=== PATIENT | female | born 1935 | race Caucasian/White ===

== ENCOUNTER 2018-07-20 00:24 | Inpatient (IN) | payer MEDICARE, OTHER ==
[~2018-07-20] VITALS: Ht 157.5 cm; Wt 51.3 kg
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
[2018-07-20] MEDS ORDERED: MORPHINE SULFATE 4 MG/ML, 1ML IVPush PRN (00:30)
[2018-07-20] MEDS ORDERED: SODIUM CHLORIDE FLUSH 10ML SYR IVF ONE (00:30)
--- NOTE | 2018-07-20 00:30 | NUR ---
Dr. Chino at bedside to evaluate pt.
--- NOTE | 2018-07-20 00:46 | NUR ---
EDT at bedside for EKG. XR complete.
--- NOTE | 2018-07-20 00:56 | NUR ---
Pt to imaging, with tech, via gureuben.
[2018-07-20 00:57] LABS: MEAN CORPUSCULAR HEMOGLOBIN 40.7 pg (27.0-34.8); MEAN CORPUSCULAR VOLUME 116.3 fL (80-100); MEAN PLATELET VOLUME 6.6 fL (7.4-10.4); PLATELET COUNT 319 x10^3/uL (130-400); RED BLOOD COUNT 3.25 x10^6/uL (3.82-5.3); RED CELL DISTRIBUTION WIDTH 12.8 % (9.6-15.2)
[2018-07-20] MEDS ORDERED: PLEASE ENTER ALLERGIES MC SCH (01:00)
[2018-07-20 01:06] LABS: ALBUMIN 3.8 g/dL (3.4-5.0); ANION GAP 7 mmol/L (5-15); CHLORIDE 106 mmol/L (98-107)
--- NOTE | 2018-07-20 01:17 | NUR ---
Purewick placed, pt tolerated well.
--- NOTE | 2018-07-20 01:40 | NUR ---
Pt resting on gurney, awake, remains on monitors. Pt aware that we are waiting on results of XR. No urine yet.
[2018-07-20 02:01] LABS: BASOPHILS # (AUTO) 0.02 x10^3/uL (0-0.1); BASOPHILS % (AUTO) 0 % (0-1); EOSINOPHILS # (AUTO) 0.01 x10^3/uL (0-0.4); EOSINOPHILS % (AUTO) 0 % (1-7); LYMPHOCYTES # (AUTO) 0.49 x10^3/uL (1-3.4); LYMPHOCYTES % (AUTO) 8 % (22-44); MD SCAN; MONOCYTES # (AUTO) 0.43 x10^3/uL (0.2-0.8); MONOCYTES % (AUTO) 7 % (2-9); NEUTROPHILS % (AUTO) 85 % (42-75)
--- NOTE | 2018-07-20 02:23 | NUR ---
Pt initially refusing pain medication, now states that she is very uncomfortable and would like pain medication.
[2018-07-20] MEDS ORDERED: MORPHINE SULFATE 4 MG/ML, 1ML ONE (02:24)
--- NOTE | 2018-07-20 02:36 | NUR ---
Pt medicated per MAR.
[2018-07-20] MEDS ORDERED: MONT10TA6 PO (02:53)
[2018-07-20] MEDS ORDERED: HYDR500C PO (02:53)
[2018-07-20] MEDS ORDERED: ipratropium PO (02:53)
[2018-07-20] MEDS ORDERED: TRAZ-137 PO (02:53)
[2018-07-20] MEDS ORDERED: MECL-76 PO (02:53)
[2018-07-20] MEDS ORDERED: PARO20TA4 PO (02:53)
[2018-07-20] MEDS ORDERED: ASPI325T17 PO (02:53)
[2018-07-20] MEDS ORDERED: BISO1TAB12 PO (02:53)
--- NOTE | 2018-07-20 02:54 | NUR ---
Pt back to room from imaging.
--- NOTE | 2018-07-20 03:06 | NUR ---
RECEIVED REPORT FROM TREASURE HALEY TO ASSUME PT. CARE AT THIS TIME.
--- NOTE | 2018-07-20 03:17 | NUR ---
PT. RESTING ON GURNEY IN SUPINE POSITION. O2 SAT DOWN TO 88% ON RA; 2L O2 VIA NC PLACED WITH INCREASE TO 94%. PT. REPORTS SHE IS COMFORTABLE AT THIS TIME. CALL LIGHT IN REACH. CONTINUOUS PULSE OX AND B/P MONITORS IN PLACE. ALL SAFETY MEASURES OBSERVED.
--- NOTE | 2018-07-20 03:43 | NUR ---
DR. ARGUETA AT TO DISCUSS PLAN FOR ADMISSION WITH PT.
--- NOTE | 2018-07-20 03:58 | NUR ---
REPORT TO TREASURE EAGLE. FLOOR READY FOR PT. TRANSPORT.
[2018-07-20] MEDS ORDERED: POLYETHYLENE GLYCOL 17 GM PACKET PO PRN (04:30)
[2018-07-20] MEDS ORDERED: ONDANSETRON 2MG/ML, 2ML IVPush PRN (04:30)
[2018-07-20] MEDS: HEPARIN 5,000 UNITS/ML, 1ML SQ SCH ×2 (05:45→14:26)
[2018-07-20 06:50] LABS: MICROSCOPIC NOT IND
[2018-07-20 06:51] LABS: CULTURE INDICATED? NO
[2018-07-20 07:02] VITALS: BP 117/71
[2018-07-20 07:30] LABS: FOLATE LEVEL 11.6 ng/mL (3.1-17.5)
[2018-07-20] MEDS: ASPIRIN 325 MG TABLET PO SCH (08:22)
[2018-07-20] MEDS: MONTELUKAST 10 MG TABLET PO SCH (08:22)
[2018-07-20] MEDS: PAROXETINE 20 MG TABLET PO SCH (08:22)
[2018-07-20] MEDS: HCTZ HOMEMEDPO SCH (08:24)
[2018-07-20] MEDS: BISOPROLOL FUMARATE HOMEMEDPO SCH (08:24)
[2018-07-20] MEDS: [UNRECOGNIZED DRUG - OTHER] HOMEMEDPO SCH (08:24)
[2018-07-20] MEDS ORDERED: GABAPENTIN 100 MG CAPSULE PO PRN (08:30)
[2018-07-20] MEDS: HYDROXYUREA 500 MG CAPSULE PO SCH (08:35)
[2018-07-20 14:06] VITALS: BP 93/59
[2018-07-20] MEDS: OXYcodone IR 5MG TABLET PO PRN ×2 (14:26→20:59)
[2018-07-20 20:00] VITALS: BP 114/68
[2018-07-20] MEDS: TRAZODONE 100MG TABLET PO SCH (20:59)
[2018-07-21] MEDS: HEPARIN 5,000 UNITS/ML, 1ML SQ SCH ×2 (02:07→13:25)
[2018-07-21] MEDS: OXYcodone IR 5MG TABLET PO PRN ×3 (02:07→19:20)
[2018-07-21 02:09] VITALS: BP 118/69
[2018-07-21 06:16] LABS: MEAN CORPUSCULAR HEMOGLOBIN 40.7 pg (27.0-34.8); MEAN CORPUSCULAR HGB CONC 34.5 g/dL (32.4-35.8); MEAN CORPUSCULAR VOLUME 117.7 fL (80-100); MEAN PLATELET VOLUME 7.4 fL (7.4-10.4); PLATELET COUNT 266 x10^3/uL (130-400); RED BLOOD COUNT 3.23 x10^6/uL (3.82-5.3); RED CELL DISTRIBUTION WIDTH 12.3 % (9.6-15.2)
[2018-07-21 06:26] LABS: ANION GAP 5 mmol/L (5-15); CALCIUM 8.9 mg/dL (8.5-10.1); CHLORIDE 100 mmol/L (98-107); CREATININE 0.91 mg/dL (0.55-1.02)
[2018-07-21 06:41] LABS: MD YES
[2018-07-21 06:43] LABS: <PLATELET ESTIMATE> ADEQUATE; <PLT MORPHOLOGY> NORMAL PLT MORPH; HYPERSEG PMNs 1+; LYMPH#(MANUAL) 0.63 x10^3/uL (1-3.4); LYMPHS% (MANUAL) 11 % (22-44); MONOS#(MANUAL) 0.17 x10^3/uL (0.3-2.7); MONOS% (MANUAL) 3 % (2-9); SEGS% (MANUAL) 86 % (42-75)
[2018-07-21 07:09] VITALS: BP 109/65
[2018-07-21] MEDS: PAROXETINE 20 MG TABLET PO SCH (08:22)
[2018-07-21] MEDS: ASPIRIN 325 MG TABLET PO SCH (08:22)
[2018-07-21] MEDS: CYANOCOBALAMIN 1,000 MCG TABLET PO SCH (08:22)
[2018-07-21] MEDS: MONTELUKAST 10 MG TABLET PO SCH (08:22)
[2018-07-21] MEDS: HYDROXYUREA 500 MG CAPSULE PO SCH (08:27)
[2018-07-21] MEDS: HCTZ HOMEMEDPO SCH (08:29)
[2018-07-21] MEDS: BISOPROLOL FUMARATE HOMEMEDPO SCH (08:29)
[2018-07-21] MEDS: [UNRECOGNIZED DRUG - OTHER] HOMEMEDPO SCH (08:29)
[2018-07-21 13:12] VITALS: BP 109/69
[2018-07-21] MEDS: CHOLECALCIFEROL 5,000u TAB PO SCH (13:26)
[2018-07-21 19:17] VITALS: BP 102/64
[2018-07-21] MEDS: TRAZODONE 100MG TABLET PO SCH (19:20)
[2018-07-22] MEDS: OXYcodone IR 5MG TABLET PO PRN (01:11)
[2018-07-22] MEDS: HEPARIN 5,000 UNITS/ML, 1ML SQ SCH ×2 (01:11→14:05)
[2018-07-22 01:15] VITALS: BP 132/71
[2018-07-22 07:33] VITALS: BP 96/61
[2018-07-22] MEDS: HCTZ HOMEMEDPO SCH (09:00)
[2018-07-22] MEDS: [UNRECOGNIZED DRUG - OTHER] HOMEMEDPO SCH (09:00)
[2018-07-22] MEDS: BISOPROLOL FUMARATE HOMEMEDPO SCH (09:00)
[2018-07-22] MEDS: ASPIRIN 325 MG TABLET PO SCH (09:02)
[2018-07-22] MEDS: CYANOCOBALAMIN 1,000 MCG TABLET PO SCH (09:02)
[2018-07-22] MEDS: MONTELUKAST 10 MG TABLET PO SCH (09:02)
[2018-07-22] MEDS: PAROXETINE 20 MG TABLET PO SCH (09:02)
[2018-07-22] MEDS: CHOLECALCIFEROL 5,000u TAB PO SCH (09:02)
[2018-07-22] MEDS: HYDROXYUREA 500 MG CAPSULE PO SCH (09:03)
[2018-07-22 11:00] VITALS: BP 94/59
[2018-07-22 12:51] VITALS: BP 111/72
[2018-07-22] MEDS ORDERED: CHOL500015 PO (14:20)
[2018-07-22] MEDS ORDERED: GABA-826 PO (14:20)
== END 2018-07-22 16:45 | disposition home health service (06) | DRG 544 ==
LOC: ED 00:46 → EDIP 03:39 → 4NOR 04:15 → DCLOUNGE 07-22 16:24
PROVIDERS: ADMIT Family Medicine; ATTEND Family Medicine
DX: M80.052A Age-related osteoporosis with current pathological fracture, left femur, initial encounter for fracture (principal); I10 Essential (primary) hypertension; E55.9 Vitamin D deficiency, unspecified; D53.9 Nutritional anemia, unspecified; M06.9 Rheumatoid arthritis, unspecified; G89.11 Acute pain due to trauma; W01.0XXA Fall on same level from slipping, tripping and stumbling without subsequent striking against object, initial encounter; F41.9 Anxiety disorder, unspecified; Z60.2 Problems related to living alone; F32.9 Major depressive disorder, single episode, unspecified; Z88.7 Allergy status to serum and vaccine; Z88.8 Allergy status to other drugs, medicaments and biological substances; Z86.73 Personal history of transient ischemic attack (TIA), and cerebral infarction without residual deficits; Y93.89 Activity, other specified; Y92.89 Other specified places as the place of occurrence of the external cause; Y99.8 Other external cause status
CPT/HCPCS: 36415; 72192; 80048; 80307; 81003; 82040; 82306; 82607; 82746; 85025; 93005; 96374; G0378; J1644

== ENCOUNTER → 2019-05-27 | Outpatient (CLI) | payer MEDICARE, OTHER ==
[~2019-05-27] MED LIST: ASPI325T17 PO; BISO1TAB92 PO; CHOL500015 PO; GABA-826 PO; HYDR500C PO; MECL-76 PO; MONT10TA6 PO; PARO20TA4 PO; TRAZ-137 PO; ipratropium PO
[2019-05-27 12:58] LABS: BASOPHILS # (AUTO) 0.05 x10^3/uL (0-0.1); BASOPHILS % (AUTO) 1 % (0-1); EOSINOPHILS # (AUTO) 0.14 x10^3/uL (0-0.4); EOSINOPHILS % (AUTO) 3 % (1-7); LYMPHOCYTES # (AUTO) 0.78 x10^3/uL (1-3.4); LYMPHOCYTES % (AUTO) 14 % (22-44); MD NO; MEAN CORPUSCULAR HEMOGLOBIN 32.3 pg (27.0-34.8); MEAN CORPUSCULAR HGB CONC 32.1 g/dL (32.4-35.8); MEAN CORPUSCULAR VOLUME 100.7 fL (80-100); MEAN PLATELET VOLUME 7.4 fL (7.4-10.4); MONOCYTES # (AUTO) 0.36 x10^3/uL (0.2-0.8); MONOCYTES % (AUTO) 6 % (2-9); NEUTROPHILS # (AUTO) 4.19 x10^3/uL (1.8-6.8); NEUTROPHILS % (AUTO) 76 % (42-75); PLATELET COUNT 825 x10^3/uL (130-400); RED BLOOD COUNT 3.34 x10^6/uL (3.82-5.3); RED CELL DISTRIBUTION WIDTH 14.2 % (9.6-15.2)
[2019-05-27 13:12] LABS: ALBUMIN 3.9 g/dL (3.4-5.0); ANION GAP 12 mmol/L (5-15); CALCIUM 9.4 mg/dL (8.5-10.1); CHLORIDE 105 mmol/L (98-107); CREATININE 1.14 mg/dL (0.55-1.02)
[2019-05-27 13:24] LABS: ALANINE AMINOTRANSFERASE 12 U/L (12-78); ALKALINE PHOSPHATASE 83 U/L (45-117); BILIRUBIN,TOTAL 0.5 mg/dL (0.2-1.0); TOTAL PROTEIN 7.6 g/dL (6.4-8.2)
== END | disposition home or self-care (01) ==
LOC: CFH 11:47
PROVIDERS: ATTEND Nurse Practitioner
DX: D69.6 Thrombocytopenia, unspecified (principal)
CPT/HCPCS: 36415; 80053; 85025

== ENCOUNTER 2020-12-28 08:41 | Outpatient (CLI) | payer MEDICARE, OTHER ==
[~2020-12-28 08:41] MED LIST changes: -TRAZ-137 PO; +TRAZ-175 PO
== END 2020-12-28 23:59 | disposition home or self-care (01) ==
LOC: RAD 08:41 → CFH 23:59
PROVIDERS: ATTEND Physician Assistant Surgical
DX: M50.21 Other cervical disc displacement, high cervical region (principal); M47.12 Other spondylosis with myelopathy, cervical region; H53.2 Diplopia; M25.78 Osteophyte, vertebrae; M41.83 Other forms of scoliosis, cervicothoracic region
CPT/HCPCS: 72141